=== PATIENT | female | born 1970 | race Caucasian/White ===

== ENCOUNTER → 2021-11-29 11:40 | Outpatient (BNVA) | payer BC, SELFPAY | PROVIDERS: Visit Provider Internal Medicine | DX: M25.50 Pain in unspecified joint (principal); M79.7 Fibromyalgia | CPT/HCPCS: 36415; 72100; 72202; 73120; 73502; 73522; 80053; 82306; 82533; 82550; 82607; 83735; 84100; 84443; 85025; 85651; 86140; 86160; 86162; 86200; 86235; 86255; 86376; 86431; 86704; 86803; 87340 ==

== ENCOUNTER → 2022-01-17 11:17 | Outpatient (BNVA) | payer BC, SELFPAY | PROVIDERS: Referring Provider Internal Medicine; Visit Provider Internal Medicine | DX: M54.50 Low back pain, unspecified (principal); M79.7 Fibromyalgia; M25.50 Pain in unspecified joint | CPT/HCPCS: 72040; 72072 ==